=== PATIENT | male | born 1995 | race Caucasian/White ===

== ENCOUNTER → 2017-09-22 14:19 | Outpatient (CLI) | payer OTHER, SELFPAY ==
--- NOTE | 2017-09-22 14:19 | DT_ITS ---
This patient was seen during an EMR downtime September 18, 2017 - September 25, 2017. This patient may have a combination of paper and electronic documentation or all paper documentation. All documentation is viewable within the e-chart portion of [facility] for each patient visit.
== END ==
PROVIDERS: Family Provider Family Medicine; PCP Family Medicine; Visit Provider Family Medicine
DX: L03.90 Cellulitis, unspecified (principal); L02.91 Cutaneous abscess, unspecified
CPT/HCPCS: 87070; 87205